=== PATIENT | female | born 1980 | race Two or more races ===

== ENCOUNTER 2022-04-20 20:06 | Emergency (ER) | payer MEDICAID, OTHER ==
[~2022-04-20] VITALS: Ht 157.5 cm; Wt 63.9 kg
[2022-04-20 20:50] VITALS: BP 147/88
[2022-04-20] MEDS ORDERED: ALBUAER3 IN (23:55)
== END 2022-04-21 00:13 | disposition home or self-care (01) ==
LOC: ER 20:06
DX: J98.01 Acute bronchospasm (principal); Z77.22 Contact with and (suspected) exposure to environmental tobacco smoke (acute) (chronic)
CPT/HCPCS: 71045